=== PATIENT | male | born 1970 | race Caucasian/White ===

== ENCOUNTER 2024-07-16 09:15 | Day surgery (SDC) | payer BC ==
[~2024-07-16 09:15] MED LIST: Sodium Chloride 0.9% 10 ML Syringe FLUSH PRN; Sodium Chloride 0.9% 10 ML Syringe FLUSH SCH
[2024-07-16] MEDS: Lactated Ringers 1,000 ML IV SCH (09:45)
[2024-07-16] MEDS: Gabapentin 300 MG Cap PO ONE (10:06)
[2024-07-16] MEDS: Acetaminophen 325 MG Tab PO ONE (10:06)
[2024-07-16] MEDS ORDERED: Ondansetron 4 MG/2 ML SDV IVPUSH PRN (11:04)
[2024-07-16] MEDS ORDERED: HYDROmorphone 0.5 MG/0.5 ML Syringe IVPUSH PRN (11:04)
[2024-07-16] MEDS ORDERED: ceFAZolin 2 GM Vial ONE (11:05)
[2024-07-16] MEDS ORDERED: fentaNYL 250 MCG/5 ML SDV ONE (11:05)
[2024-07-16] MEDS ORDERED: Propofol 200 MG/20 ML SDV ONE (11:05)
[2024-07-16] MEDS ORDERED: Rocuronium 50 MG/5 ML Vial ONE (11:05)
[2024-07-16] MEDS ORDERED: Lidocaine 1% 5 ML VIAL ONE (11:05)
[2024-07-16] MEDS ORDERED: Ondansetron 4 MG/2 ML SDV ONE (11:05)
[2024-07-16] MEDS ORDERED: Midazolam 1 MG/ML 2 ML SDV ONE (11:05)
[2024-07-16] MEDS ORDERED: Lactated Ringers 1,000 ML IV ONE (15:00)
[2024-07-16] MEDS: EPINEPHrine 1 MG/ML SDV ONE (15:15)
[2024-07-16] MEDS: Lidocaine 1% 30 ML SDV ONE (15:15)
[2024-07-16] MEDS: Bupivacaine 0.5% 30 ML SDV ONE (15:15)
[2024-07-16] MEDS ORDERED: Sugammadex Sodium 200 MG/2 ML VIAL IV ONE (15:22)
[2024-07-16] MEDS ORDERED: Ketorolac 30 MG/ML SDV ONE (15:22)
[2024-07-16] MEDS ORDERED: fentaNYL 100 MCG/2 ML SDV ONE (15:24)
[2024-07-16] MEDS: fentaNYL 100 MCG/2 ML SDV IVPUSH PRN (16:21)
[2024-07-16] MEDS: Acetaminophen/oxyCODONE 325-5 MG Tab PO PRN (17:05)
== END 2024-07-16 19:15 | disposition home or self-care (01) ==
LOC: JD.SDS 09:15
PROVIDERS: ATTEND Surgery
DX: K80.10 Calculus of gallbladder with chronic cholecystitis without obstruction (principal); D13.5 Benign neoplasm of extrahepatic bile ducts; E11.9 Type 2 diabetes mellitus without complications; E78.5 Hyperlipidemia, unspecified; I10 Essential (primary) hypertension; Z88.8 Allergy status to other drugs, medicaments and biological substances; Z79.84 Long term (current) use of oral hypoglycemic drugs; Z79.899 Other long term (current) drug therapy
CPT/HCPCS: 47562; 82947; A9270; J0171; J0665; J0690; J1885; J2250; J2405; J2704; J3010; J3490; J7120

== ENCOUNTER 2025-05-25 13:00 | Emergency (ER) | payer BC ==
[2025-05-25 14:24] LABS: BASOPHILS ABSOLUTE AUTO 0.1 K/mm3 (0.0-0.2); BASOPHILS PERCENT AUTO 0.6 % (0.0-1.0); EOSINOPHILS ABSOLUTE AUTO 0.1 K/mm3 (0.0-0.4); EOSINOPHILS PERCENT AUTO 0.6 % (0.0-6.0); IMMATURE GRAN ABSOLUTE AUTO 0.04 K/mm3 (0.00-0.05); IMMATURE GRAN PERCENT AUTO 0.4 % (0.0-0.4); LYMPHOCYTES ABSOLUTE AUTO 2.2 K/mm3 (1.0-4.8); LYMPHOCYTES PERCENT AUTO 20.6 % (24.0-44.0); MEAN PLATELET VOLUME 9.1 fl (9.4-12.4); MONOCYTES ABSOLUTE AUTO 1.0 K/mm3 (0.0-0.8); MONOCYTES PERCENT AUTO 8.9 % (0.0-8.0); NEUTROPHILS ABSOLUTE AUTO 7.4 K/mm3 (1.8-7.7); NEUTROPHILS PERCENT AUTO 68.9 % (41.0-71.0); NRBC ABSOLUTE 0.00 (0.00-0.02); NRBC PERCENT 0.0 % (0.0-0.2); PLATELET COUNT,PLT 270 K/mm3 (150-400); RED BLOOD CELL COUNT 5.83 M/mm3 (4.52-5.90); WHITE BLOOD CELL COUNT,WBC 10.77 K/mm3 (3.9-11.3)
[2025-05-25 14:47] LABS: A/G RATIO 1.2 (1-2); ALANINE AMINOTRANSFERASE,ALT 63 U/L (16-63); ASPARTATE AMNIOTRANSFERASE,AST 26 U/L (15-37); BILIRUBIN TOTAL 0.8 mg/dL (0.2-1.0); BLOOD UREA NITROGEN,BUN 19 mg/dL (7-18); CARBON DIOXIDE,CO2 28 mEq/L (21-32); CHLORIDE,CL 98 mEq/L (98-107); CREATINE KINASE,CK 94 U/L (39-308); CREATININE 1.0 mg/dL (0.7-1.3); ESTIMATED GFR 89 mL/min (>60); GLUCOSE RANDOM 121 mg/dL (70-99); POTASSIUM,K 4.2 mEq/L (3.5-5.1); PROTEIN TOTAL,TP 7.8 g/dl (6.4-8.2); SODIUM,NA 135 mEq/L (136-145); TROPONIN I HIGH SENSITIVITY 6 pg/mL (<=76)
== END 2025-05-25 15:00 | disposition home or self-care (01) ==
LOC: JD.ED 13:00
DX: M25.512 Pain in left shoulder (principal); I44.7 Left bundle-branch block, unspecified; R53.83 Other fatigue; E11.9 Type 2 diabetes mellitus without complications; I10 Essential (primary) hypertension; Z88.8 Allergy status to other drugs, medicaments and biological substances; Z79.899 Other long term (current) drug therapy
CPT/HCPCS: 36415; 71045; 71045-26; 73030-26-LT; 73030-LT; 80053; 82550; 83690; 83735; 84484; 85025; 85652; 86140; 93005; 93010; 99282; 99285